=== PATIENT | male | born 1990 | race Caucasian/White ===

== ENCOUNTER 2022-11-23 12:41 | Emergency (ER) | payer OTHER ==
[~2022-11-23] VITALS: Ht 170.2 cm; Wt 72.6 kg
[2022-11-23 13:09] VITALS: BP 108/61
[2022-11-23] MEDS ORDERED: IBUPROFEN 800 MG TAB PO ONE (14:40)
[2022-11-23] MEDS ORDERED: IBUP-2213 PO (15:22)
[2022-11-23] MEDS ORDERED: IBUPROFEN 800 MG TAB ONE (16:41)
[2022-11-23 16:53] VITALS: BP 117/61
--- NOTE | 2022-11-23 16:53 | NUR ---
Patient discharged with v/s stable. Written and verbal after care instructions FOR METACARPAL FRACTURE, HAMATE FRACTURE AND WRIST PAIN given and explained. Patient alert, oriented and verbalized understanding of instructions. Ambulatory with steady gait. All questions addressed prior to discharge. ID band removed. Patient advised to follow up with PMD. Rx of IBUPROFEN given. Opportunity to ask questions provided and answered.
--- NOTE | 2022-11-23 16:53 | NUR ---
The patient's care was reviewed and supervised by [facility], RN.
== END 2022-11-23 16:53 | disposition home or self-care (01) ==
LOC: MED 12:41
DX: M25.531 Pain in right wrist (principal)
CPT/HCPCS: 73110; 73130; 99284